=== PATIENT | male | born 1960 | race Two or more races ===

== ENCOUNTER 2017-06-23 23:23 | Inpatient (IN) | payer OTHER ==
[~2017-06-23] VITALS: Ht 180.3 cm; Wt 80.7 kg
[~2017-06-23 23:23] MED LIST: BUPR300T70 PO; CLON1TAB PO; GABA300C PO; QUET50TA PO; SILO8CAP PO; VENL37.55 PO
[2017-06-23 23:28] VITALS: BP 150/106
[2017-06-23] MEDS ORDERED: TAMS0.4C96 PO (23:35)
[2017-06-23] MEDS ORDERED: DULO30EC PO (23:35)
[2017-06-23] MEDS ORDERED: FINA5TAB1 PO (23:35)
[2017-06-23] MEDS ORDERED: NACL 0.9% 1,000 ML IV ONE (23:50)
[2017-06-23] MEDS ORDERED: ASPIRIN 81 MG TAB.CHEW PO ONE (23:50)
--- NOTE | 2017-06-23 23:50 | NUR ---
PATIENT PRESENTS TO ED WITH C/O SYNCOPAL EPISODE AT HOME, WITNESSED BY . C/O DIZZINESS AND SEARS. PAIN 7/10 PT DENIES N/V/D; SKIN IS PINK/WARM/DRY; AAOX4. LUNGS CLEAR BL; HR EVEN AND REGULAR; PT DENIES ANY FEVER, CP, SOB, OR COUGH AT THIS TIME; PATIENT STATES PAIN OF 7/10 AT THIS TIME; PATIENT POSITIONED FOR COMFORT; HOB ELEVATED; BEDRAILS UP X2; BED DOWN. ER MD MADE AWARE OF PT STATUS.
[2017-06-24] LABS: BASOPHILS # (AUTO) 0.4 K/uL (0.00-0.22); BASOPHILS % (AUTO) 4.9 % (0.0-2.0); EOSINOPHILS # (AUTO) 0.2 K/uL (0-0.4); EOSINOPHILS % (AUTO) 2.7 % (0.0-4.0); HEMATOCRIT 43.1 % (36-52); HEMOGLOBIN 14.3 g/dL (12.0-18.0); LYMPHOCYTES # (AUTO) 1.3 K/uL (2.0-11.5); LYMPHOCYTES % (AUTO) 16.6 % (20.5-51.1); MEAN CORPUSCULAR HEMOGLOBIN 31 pg (27-31); MEAN CORPUSCULAR HGB CONC 33 g/dL (33-37); MEAN CORPUSCULAR VOLUME 94 fL (80-94); MONOCYTES # (AUTO) 0.5 K/uL (0.8-1.0); MONOCYTES % (AUTO) 6.4 % (1.7-9.3); NEUTROPHILS # (AUTO) 5.5 K/uL (1.8-7.7); NEUTROPHILS % (AUTO) 69.4 % (42.2-75.2); PLATELET COUNT (AUTO) 195 K/uL (140-450); RED BLOOD CELL COUNT(AUTO) 4.57 MIL/uL (4.20-6.10); RED CELL DISTRIBUTION WIDTH 11.9 % (11.6-13.7); WHITE BLOOD COUNT (AUTO) 7.9 K/uL (4.8-10.8)
[2017-06-24 00:11] LABS: ANION GAP 8.8 (8-16); CARBON DIOXIDE 32.1 mmol/L (21-32); CREATININE 0.9 mg/dL (0.7-1.3); POTASSIUM 3.9 mmol/L (3.5-5.1)
[2017-06-24 00:17] LABS: ALBUMIN 3.8 g/dL (3.4-5.0); TOTAL BILIRUBIN 0.2 mg/dL (0.0-1.0)
--- NOTE | 2017-06-24 00:20 | NUR ---
PT TO CT VIA J[facility]LEN IN STABLE CONDITION
[2017-06-24 00:22] LABS: PROTHROMBIN TIME 10.7 secs (10.8-13.4)
--- NOTE | 2017-06-24 00:36 | NUR ---
PT RETURNED IN STABLE CONDITION
--- NOTE | 2017-06-24 01:55 | NUR ---
IV 18GA LT A/C DONE, CONTRAST FOR CT CONSENT SIGNED BY PT FILEMON AT THIS TIME
--- NOTE | 2017-06-24 01:58 | NUR ---
PT SENT TO CT WITH VETO AAMELANIA4 AT THIS TIME
[2017-06-24] MEDS ORDERED: ONDANSETRON 4 MG/2 ML VIAL IVP PRN (02:25)
[2017-06-24] MEDS ORDERED: ACETAMINOPHEN 325 MG TAB PO PRN (02:25)
[2017-06-24] MEDS ORDERED: HYDROcodone/APAP 7.5/325 MG 1 TAB PO PRN (02:25)
[2017-06-24] MEDS ORDERED: NITROGLYCERIN 0.4 MG TAB SL PRN (02:30)
[2017-06-24] MEDS ORDERED: MECLIZINE 25 MG TAB PO PRN ×2 (02:30→08:05)
[2017-06-24 02:48] LABS: APPEARANCE,URINE CLEAR (CLEAR); BILIRUBIN,URINE NEGATIVE (NEGATIVE); BLOOD, URINE NEGATIVE (NEGATIVE); COLOR,URINE YELLOW (YELLOW); LEUKOCYTE ESTERASE ,URINE NEGATIVE (NEGATIVE); NITRITE, URINE NEGATIVE (NEGATIVE); UGLUCOSE NEGATIVE (NEGATIVE)
[2017-06-24 03:12] LABS: CHOL/HDL RATIO 3.6 (1-4.5); FREE T4 (FREE THYROXINE) 0.93 ng/dL (0.76-1.46); MAGNESIUM 2.2 mg/dL (1.8-2.4); PHOSPHORUS 2.6 mg/dL (2.5-4.9); THYROID STIMULATING HORMONE 0.48 uIU/mL (0.34-3.74)
[2017-06-24] MEDS: NACL 0.9% 1,000 ML IV SCH ×2 (03:18→13:58)
[2017-06-24 03:20] VITALS: BP 133/80
--- NOTE | 2017-06-24 03:20 | NUR ---
PATIENT ON UNIT FROM ER. PATIENT A&OX4. PATIENT DENIES PAIN. PATIENT AMBULATORY. TWO IV SITES, BOTH PATENT AND INTACT. [PATIENT ORIENTED TO ROOM. SAFETY MEASURES ENSURED. FAMILY AT BEDSIDE. NO SIGNS OR SYMPTOMS OF ACUTE DISTRESS NOTED CALL LIGHT WITHIN REACH WILL CONTINUE TO MONITOR.
--- NOTE | 2017-06-24 03:21 | NUR ---
Patient will be admitted to care of DR WASHINGTON. Admited to TELE. Will go to room 105B. Belongings list completed. Report to YSABEL MARTIN.
[2017-06-24] MEDS ORDERED: clonazePAM 0.5 MG TAB PO PRN (04:15)
[2017-06-24] MEDS: DULoxetine 30 MG CAPDR PO SCH ×2 (04:47→09:00)
--- NOTE | 2017-06-24 05:08 | NUR ---
PATIENT RESTING IN BED. PATIENT DENIES PAIN. NO SIGNS OR SYMPTOMS OF ACUTE DISTRESS NOTED. CALL LIGHT WITHIN REACH. WILL CONTINUE TO MONITOR.
--- NOTE | 2017-06-24 07:25 | NUR ---
ENDORSED PLAN OF CARE TO AM RN. PATIENT IN STABLE CONDITION. SAFETY MEASURES ENSURED.
--- NOTE | 2017-06-24 07:26 | NUR ---
RECEIVED REPORT FROM GRAB DRIVER NURSE AT BEDSIDE FOR CONTINUITY OF CARE. PATIENT ALERT AND ORIENTED X4. IV ON RIGHT HAND, 20G WITH NS @ 100 ML/HR. PATIENT IS AMBULATORY. SKIN IS INTACT. PATIENT IS ON ROOM AIR. NO SIGNS OF DISTRESS. SAFETY MEASURES ENSURED. CALL LIGHT IS WITHIN REACH. WILL CONTINUE TO MONITOR.
[2017-06-24 08:00] VITALS: BP 144/88
[2017-06-24 08:35] LABS: BASOPHILS # (AUTO) 0.1 K/uL (0.00-0.22); BASOPHILS % (AUTO) 2.1 % (0.0-2.0); EOSINOPHILS # (AUTO) 0.1 K/uL (0-0.4); EOSINOPHILS % (AUTO) 1.8 % (0.0-4.0); HEMATOCRIT 41.8 % (36-52); HEMOGLOBIN 14.1 g/dL (12.0-18.0); LYMPHOCYTES # (AUTO) 1.8 K/uL (2.0-11.5); LYMPHOCYTES % (AUTO) 26.1 % (20.5-51.1); MEAN CORPUSCULAR HEMOGLOBIN 32 pg (27-31); MEAN CORPUSCULAR HGB CONC 34 g/dL (33-37); MEAN CORPUSCULAR VOLUME 94 fL (80-94); MONOCYTES # (AUTO) 0.4 K/uL (0.8-1.0); MONOCYTES % (AUTO) 5.7 % (1.7-9.3); NEUTROPHILS # (AUTO) 4.6 K/uL (1.8-7.7); NEUTROPHILS % (AUTO) 64.3 % (42.2-75.2); PLATELET COUNT (AUTO) 171 K/uL (140-450); RED BLOOD CELL COUNT(AUTO) 4.43 MIL/uL (4.20-6.10); RED CELL DISTRIBUTION WIDTH 12.1 % (11.6-13.7)
--- NOTE | 2017-06-24 08:36 | NUR ---
PATIENT GIVEN MORNING MEDS. CYMBALTA (GIVEN EARLIER PER STRAP BUCKLER NURSE) AND METOPROLOL (LOW HR) HELD. PATIENT TOLERATED WELL. WILL CONTINUE TO MONITOR PATIENT.
[2017-06-24 08:55] LABS: ANION GAP 10.3 (8-16); CARBON DIOXIDE 28.5 mmol/L (21-32); CREATININE 0.9 mg/dL (0.7-1.3); POTASSIUM 3.8 mmol/L (3.5-5.1)
[2017-06-24] MEDS ORDERED: METOPROLOL 25 MG TAB PO SCH (09:00)
[2017-06-24] MEDS ORDERED: LISINOPRIL 5 MG TAB PO SCH (09:00)
[2017-06-24] MEDS ORDERED: ASPIRIN 81 MG TAB.CHEW PO SCH (09:00)
[2017-06-24] MEDS ORDERED: DOCUSATE SODIUM 100 MG GELCAP PO SCH (09:00)
[2017-06-24] MEDS ORDERED: TAMSULOSIN 0.4 MG CAP PO SCH (09:00)
--- NOTE | 2017-06-24 10:03 | NUR ---
PATIENT HAS BEEN SCREENED AND CATEGORIZED LOW NUTRITION RISK. PATIENT WILL BE SEEN WITHIN 7 DAYS OF ADMISSION. 06/30/[address]
--- NOTE | 2017-06-24 13:00 | NUR ---
PT REQUESTING TO FIND OUT ABOUT HIS VQ SCAN. WHY THERE IS SUCH A WAIT. HE WAS TOLD HE WAS GOING TO HAVE IT AT 0800. EXPLAINED TO PT THAT WE ARE TRYING TO LOCATE THE LUMBER DRIVER. WILL KEEP HIM UPDATED. WILL CONTINUE TO MONITOR PT.
--- NOTE | 2017-06-24 15:30 | NUR ---
PT WANTS TO GO AMA. DR KUNZ CAME AND EXPLAINED TO THE PT THE CONSEQUENCES OF LEAVING, INCLUDING . PT VERBALIZED UNDERSTANDING. HE WILL F/U WITH HIS OWN DR TOMORROW. HE ALREADY HAS APPT. WILL PRINT OUT AMA FORM AND REMOVE HIS IV.
--- NOTE | 2017-06-24 15:40 | NUR ---
PT SIGNED AMA. REMOVED IV, CANNULA INTACT. PT WALKED OUT WITH FAMILY. ALL PERSONAL BELONGINGS IN HAND. PT IN STABLE CONDITION.
[2017-06-24] MEDS ORDERED: FINASTERIDE 5 MG TAB PO SCH (21:00)
[2017-06-24] MEDS ORDERED: ATORVASTATIN 20 MG TAB PO SCH (21:00)
[2017-06-24] MEDS ORDERED: GABAPENTIN 300 MG CAP PO SCH (21:00)
== END 2017-06-24 15:40 | disposition left against medical advice (07) | DRG 74 ==
LOC: MED 23:23 → MTU 06-24 02:19
PROVIDERS: ADMIT Family Medicine; ATTEND Family Medicine
DX: G90.9 Disorder of the autonomic nervous system, unspecified (principal); I24.9 Acute ischemic heart disease, unspecified; E78.00 Pure hypercholesterolemia, unspecified; E78.5 Hyperlipidemia, unspecified; K21.9 Gastro-esophageal reflux disease without esophagitis; M94.0 Chondrocostal junction syndrome [Tietze]; F32.9 Major depressive disorder, single episode, unspecified; N40.0 Benign prostatic hyperplasia without lower urinary tract symptoms; M54.5 Low back pain; G89.29 Other chronic pain; Z91.013 Allergy to seafood
CPT/HCPCS: 36415; 70450; 71010; 80048; 80053; 81003; 82150; 83036; 83605; 83690; 83735; 84100; 84439; 84443; 84484; 85025; 85379; 85610; 85730; 87040; 87081; 87086; 93005; 93880; 99285; J7030; Q0092